=== PATIENT | female | born 1980 | race Caucasian/White ===

== ENCOUNTER 2017-11-07 13:07 | Outpatient (CLI) | payer OTHER ==
[~2017-11-07 13:07] MED LIST: ANTIVERT25 MG; CLONAZEPAM0.5 MG; DICLOFENAC POTA50 MG PO; LYRICA50 MG; PERCOCET 5/321 UDTAB; PHENERGAN25 MG; RELPAX PO; TIZANIDINE HCL2 MG PO; TRAMADOL HCL50 MG PO; [UNRECOGNIZED DRUG - OTHER]
== END 2017-11-07 13:20 | disposition home or self-care (01) ==
LOC: RAD 13:07
DX: R19.7 Diarrhea, unspecified (principal)

== ENCOUNTER 2017-11-09 15:47 | Outpatient (CLI) | payer OTHER | END 2017-11-09 15:54 | disposition home or self-care (01) | LOC: LAB 15:47 | DX: R19.7 Diarrhea, unspecified (principal) ==